=== PATIENT | female | born 1965 | race Caucasian/White ===

== ENCOUNTER 2017-03-26 05:46 | Day surgery (SDC) | payer OTHER ==
[2017-03-26] VITALS (13 sets, daily range): BP systolic 112–153; BP diastolic 49–82; PULSE 59–72; RESP 13–22; O2SAT 95–100
[~2017-03-26] VITALS: Ht 167.6 cm; Wt 69.7 kg
[~2017-03-26 05:46] MED LIST: ALPH50CA PO; ATOR20TA PO; FEXO180T85 PO; FLUT50DI IH; IMI100 PO; LEVO100T6 PO; LISI40TA PO; VALA500T38 PO
[2017-03-26] MEDS ORDERED: Propofol 10,000 mCg/mL 20 mL Inj ONE (05:47)
[2017-03-26] MEDS ORDERED: Ondansetron 2 mg/mL 2 mL Inj ONE (05:47)
[2017-03-26] MEDS ORDERED: fentaNYL-PF 50 mCg/mL 2 mL Inj ONE (05:47)
[2017-03-26] MEDS ORDERED: Phenylephrine/NS 100 mCg/mL 10 mL Syringe IVPUSH ONE (05:47)
[2017-03-26] MEDS ORDERED: MetoCLOpramide 5 mg/mL 2 mL Inj ONE (05:47)
[2017-03-26] MEDS ORDERED: Rocuronium 10 mg/mL 5 mL Inj ONE (05:47)
[2017-03-26] MEDS: Lactated Ringer's 1,000 ML IV SCH ×2 (05:52→08:00)
[2017-03-26] MEDS ORDERED: insulin pump SQ (06:05)
[2017-03-26] MEDS ORDERED: Bupivacaine-MPF 0.5% W/EPI 30 mL Inj INFILTRATE ONE (08:44)
[2017-03-26] MEDS ORDERED: Lactated Ringer's 500 ML IV PRN (08:44)
[2017-03-26] MEDS ORDERED: Lactated Ringer's 1,000 ML IV SCH (08:44)
--- NOTE | 2017-03-26 08:44 | PCM.HPANE ---
Patient Data Surgeon Admitting Provider: Attending Provider:Sean Shaw MD Primary Care Physician:Other,Physician Other Provider:Ashely Ravi Anesthesia Reason for Visit Left Thyroid Nodule Ht/WT & BMI Height (Feet): 5 Height (Inches): 6.00 Weight (Kilograms): 69.7 Body Mass Index 24.00 Allergies Coded Allergies: No Known Allergies (Unverified , 03/25/17) Past Anesthesia History Anesthesia History: Positive for:: Anesthesia Reactions (very nauseated post op ), Denies:: Abnormal Airway, Difficult Intubation, Fam Anesthesia Reaction ( believes mother has nausea post op), Fam Malignant Hypertherm, Malignant Hyperthermia Diabetes History Hx Diabetes?: Yes (insulin pump, bs at home at 04-168) Type of Diabetes: Type I Glycemic Control: Insulin Pump Current Bedside Blood Glucose: 164 MRSA MRSA: No Medications Hypertension Medication: No Home Meds Incl Beta Aubrey: No Reported Medications [insulin pump] No Conflict Check0.925 Units SQ cont 03/26/17 Valacyclovir 500 Mg [id number] Mg PO BID 03/25/17 Sumatriptan (Imitrex)100 Mg [id number] Mg PO PRN migraines 03/25/17 Lisinopril 40 Mg [id number] Mg PO DAILY 30 Days Ref 0 03/25/17 Levothyroxine 100 Mcg [id number] Mcg PO DAILY For Thyroid Replacement Ref 0 03/25/17 Fluticasone Propionate (Flovent Diskus)50 Mcg Disk.w.dev1 Puff IH BID #1 INHALER Ref 0 03/25/17 Atorvastatin (Lipitor)20 Mg Ksalvb39 Mg PO DAILY Ref 0 03/25/17 Alpha Lipoic Acid 50 Mg Szhhtyf73 Mg PO DAILY 03/25/17 Fexofenadine (Rosalind Allergy)180 Mg Zwhfhp201 Mg PO DAILY Ref 0 03/25/17 History History of ENT Problems?: No HEENT History: Denies:: Abnormal Airway Cataracts Difficult Intubation Dysphagia Glaucoma Hearing Problem Sinus Problem TMJ Denture Type: None Teeth Condition: Within Normal Limits Hx of Heart Problems?: No Cardiovascular History: Positive for:: Hypertension Denies:: AICD Abdominal Aortic Aneurism Atrial Fibrillation Cardiac Surgery Chest Pain Congestive Heart Failure Coronary Artery Disease Edema Heart Murmur Irregular Heartbeat Pacemaker Peripheral Vascular Rheumatic Fever Thrombophlebitis Valvular Heart Disease Hx of Respiratory Problem?: Yes Respiratory History: Positive for:: Asthma (exercise induced only) Use of Inhalers / NEBS Denies:: COPD Chest Surgery Cough Dyspnea Emphysema Hemoptysis Oxygen Administration Pneumonia Pulmonary Embolism Tuberculosis Use of C-PAP Machine Hx Neurologic Problems?: Yes Neurological History: Positive for:: Headaches (rare) Denies:: Alzheimer's Disease CVA Dementia Dizziness Multiple Sclerosis Parkinson's Disease Peripheral Neuropathy Seizures TIA Hx of GI Problems?: No Gastrointestinal History: Denies:: Cirrhosis Diverticulitis Gall Bladder Disease Gastroesphageal Reflux Gastrointestinal Bleeding Heartburn Hepatitis Hiatal Hernia Liver Disease Rectal Bleeding Hx of Problems?: No Genitourinary History: Denies:: HX of Hemodialysis Kidney Stones Urinary Tract Infection HX of Peritoneal Dialysis: No Female Hx: Denies:: Currently Endometriosis Pelvic Inflammatory Problems with Breasts? Skin History: Denies:: History Skin Disorders? Pressure Ulcers Hx Musculoskeletal Problems?: No Musculoskeletal History: Denies:: Back Injury Degenerative Joint Fibromyalgia Joint Replacement Musculoskeletal Trauma Myasthenia Gravis Osteoarthritis Rheumatoid Arthritis Systemic Lupus Hx of Psycho/Social Problems?: No Psycho Social History: Denies:: Anxiety Bipolar Disorder Hx Depression Suicide Attempt Hx Surgeries?: Yes (expl lap, knee scope) Hx Any Other Health Problems?: Yes Other History: Positive for:: Thyroid Disease (current admission problem) Denies:: Cancer History Blood Transfusions: Positive for:: Accept Blood Products? Denies:: Blood Transfusions Hx Diabetes: Yes (insulin pump, bs at home at 04-168)Bedside Blood Glucose: 164 Hx Alcohol Use: YesAlcoholic Drinks Per Day: 2 glasses weekHx Substance Use: NoHave You Smoked inLast 12 mo: No Stop/Bang P-Blood Pressure: treated: Yes B- Body Mass Index > 35 kg/m2: No A- Age over 50: Yes N- Neck Large Circumference: No G- Gender Male: No Risk Assessment Category Category 1A: Patient has history of documented sleep apnea, and HAS NOT received any narcotic, sedative or anesthesia administration during this stay. Category 1B: Patient has history of documented sleep apnea, and HAS received any narcotic , sedative or anesthesia administration during this stay Category 2: Patient has SUSPECTED Obstructive Sleep Apnea, and HAS received any narcotic , sedative or anesthesia administration during this stay. Category 3: Patient has SUSPECTED Obstructive Sleep Apnea and HAS NOT received narcotic, sedative or anesthesia administration during this stay. Category 4: Outpatient in Procedural Areas with known sleep apnea or who screen positive for High Risk via the STOP/BANG questionnaire. Exam Exam Vital Signs Vital Signs Date Time Temp Pulse Resp B/P Pulse Ox O2 Delivery O2 Flow Rate FiO2 03/26/17 06:37 36.5 60 18 153/82 100 Room Air General Appearance: Alert, Oriented X3, Cooperative, No Acute Distress HEENT/AIRWAY: MP 2, Neck Movement (FROM), Mouth Opening (3 FBMO) Lungs: Clear to Auscultation, Normal Air Movement Heart: Exam Unremarkable, Regular Rate/Rhythm, No Murmurs/Rubs/Gallops Meds/Labs/Diagnostics Admission Meds Current Medications Lactated Ringer's (Lr) 1,000 ml @ 120 mls/hr Q8H20M IV Last administered on t 05:52; Start 03/26/17 at 05:00; Stop 03/26/17 at 13:19 Bedside Blood Glucose: 164 Plan Impression Patient chart reviewed, patient interviewed and anesthestic plan with risks, benefits, and alternatives discussed, and informed consent obtained. NPO per Anesth. Guidelines: Yes ASA Physical Status: ASA3 Severe Disease (IDDM, with insulin pump) Anesthetic Plan: GA Bene/Risks/Altern/Consents: Yes HP Complete Prior to Induction: Yes Geovanny Snyder MD Mar 26, 2017 06:58
[2017-03-26] MEDS ORDERED: HYDROmorphone 1 mg/mL Inj IVPUSH PRN (08:45)
[2017-03-26] MEDS ORDERED: fentaNYL-PF 50 mCg/mL 2 mL Inj IVPUSH PRN (08:45)
[2017-03-26] MEDS ORDERED: EPHEDrine Sulfate 50 mg/mL Inj IVPUSH PRN (08:45)
[2017-03-26] MEDS ORDERED: Phenylephrine 10,000 mCg/mL Inj IVPUSH PRN (08:45)
[2017-03-26] MEDS ORDERED: Labetalol 5 mg/mL 4 mL Inj IV PRN (08:45)
[2017-03-26] MEDS ORDERED: Ondansetron 2 mg/mL 2 mL Inj IVPUSH PRN (08:45)
[2017-03-26] MEDS ORDERED: MetoCLOpramide 5 mg/mL 2 mL Inj IVPUSH PRN (08:45)
[2017-03-26] MEDS ORDERED: Atropine 0.4 mg/mL Inj IVPUSH PRN (08:45)
[2017-03-26] MEDS ORDERED: HYDROcodone-APAP 5-325 mg Tablet PO PRN (11:00)
--- NOTE | 2017-03-26 11:42 | OP ---
[address] [address] OPERATIVE REPORT PATIENT: CHARLES GAINES : 1965 MR#: [id number] ADMIT: 03/26/2017 JOB ID: [id number] DATE OF SURGERY: 03/26/2017 PREOPERATIVE DIAGNOSIS(ES): Left thyroid nodule. POSTOPERATIVE DIAGNOSIS(ES): Left thyroid node. PROCEDURE: Left thyroid lobectomy. SURGEON: Sean Shaw MD DAIRY LAB TECHNICIAN: MD Veto Corodn PA-C INDICATION: A 51-year-old female, who has a left thyroid nodule. 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 It is approaching 4 cm in size, and the entire lobe was 6 cm. She has a history of hypothyroidism and has been on chronic thyroid replacement. She also has insulin-dependent diabetes. On physical examination, she had a visible left thyroid nodule, and after discussing options with the patient, it was elected to proceed with a left thyroid lobectomy. FINDINGS: The left inferior pole nodule showed no evidence of invasion of adjacent strap muscles or other structures. The left inferior parathyroid was identified and preserved, and possibly the superior. The recurrent laryngeal nerve was identified and preserved. The nodule had a cystic component and when the inferior pole was being retracted, the cystic portion ruptured and some of the nodule came into the wound, but was removed and the wound was irrigated, and there was no residual nodular tissue in the wound at the end of the operation. DESCRIPTION OF PROCEDURE: At the beginning and end of the operation, the SCOAP checklist was completed. A general endotracheal anesthetic was induced. Her neck was extended, prepped with ChloraPrep and draped in the usual fashion. The collar incision was designed and infiltrated with 0.5% bupivacaine with epinephrine. After incising the skin, cautery was used to divide the platysma muscle and superior and inferior subplatysmal flaps were created. The strap muscles were identified and in the midline, and then the plane between the sternohyoid and sternal thyroid muscles on the left was . The sternal thyroid was then mobilized off the left lobe. The middle thyroid vein was identified and divided with double applications of the LigaSure. The superior pole vessels were taken and the superior pole was then freed. The inferior pole was inspected and I was able to identify the left inferior parathyroid gland just off of the thyroid lobe. It was preserved. The isthmus was divided with the energy device. Mobilization then of the lobe continued from both the superior pole towards the medial and the inferior pole towards medial. I was then able to mobilize the lobe medially, but in doing so, as stated above, the nodule which was partially cystic, ruptured. As the lobe was mobilized medially, the left recurrent laryngeal nerve was identified. There was almost a fibrotic appearance or texture to the gland near Wes's ligament, and this was, of course, taken very carefully and slowly using bipolar cautery, but frequently going back and identifying the location of the recurrent nerve. Ultimately, the lobe was completely removed. The wound was irrigated with saline. There was no active bleeding. The strap muscles were reapproximated in midline with 3-0 Vicryl. The platysma was closed with running 3-0 Vicryl. The skin with running subcuticular 4-0 Monocryl and then with Dermabond. The estimated blood loss was 30 cc. There were no apparent complications. The final sponge, needle, and instrument counts were announced as correct and the patient was returned to the recovery room in stable condition. Critical assistance was provided by Jordin Salas MD, and Jose G Lr PA-C. CC: Naima Rabago, [place]
--- NOTE | 2017-03-26 11:44 | PCM.ANEP1 ---
Post Anesthesia PACU Phase 1 Assessment Vital Signs Vital Signs Date Time Temp Pulse Resp B/P Pulse Ox O2 Delivery O2 Flow Rate FiO2 03/26/17 11:30 60 16 116/59 98 Nasal Cannula 2 03/26/17 11:26 36.9 62 22 122/59 97 Nasal Cannula 2 03/26/17 11:15 64 13 114/49 97 Room Air 03/26/17 11:10 64 20 113/56 95 Room Air 03/26/17 11:05 67 14 122/53 95 Room Air 03/26/17 11:00 69 15 119/60 95 Room Air 03/26/17 10:55 69 14 112/55 95 Room Air 03/26/17 10:50 70 17 119/52 97 Simple Mask 10 03/26/17 10:45 72 16 128/66 97 Simple Mask 10 03/26/17 10:40 69 16 123/72 97 Simple Mask 10 03/26/17 10:38 36.7 68 19 126/59 97 Simple Mask 10 03/26/17 06:37 36.5 60 18 153/82 100 Room Air Anesthetic Administered: GA Level of Alertness: Awake, talking MCKEON's with Equal Strength: Yes Pain: No Nausea or Vomiting: No CV Function & Hydration Stable: No Airway Device: Oxygen Delivery: Nasal Cannula Lungs: Clear to Auscultation, Normal Air Movement Dermatome Level: Full Sensation PACU Phase 2 Assessment Complications: No Follow up Care: N/A Patient Instructions Provided: N/A Geovanny Snyder MD Mar 26, 2017 11:44
--- NOTE | 2017-03-28 13:49 | PATH ---
SURGICAL PATHOLOGY Attending Physician:Sejal Crystal CASE STATUS: Signed Out PATIENT NAME: CHARLES GAINES PID: [id number] : 1965 DATE COLLECTED:03/26/2017 22:50 SPECIMEN: 1: Thyroid, Lobectomy 2: Thyroid, Lobectomy CLINICAL HISTORY: LEFT THYROID NODULE 1). PORTION OF THYROID NODULE 2). LEFT THYROID FINAL DIAGNOSIS: 1. 2.LEFT THYROID LOBE RESECTION SPECIMENS: DIFFUSE LYMPHOCYTIC CHRONIC THYROIDITIS. MULTIPLE FOLLICULAR HYPERPLASTIC NODULES. SINGLE PARATHYROID GLAND IDENTIFIED IN THE LOWER PORTION OF THE SPECIMEN (INTRATHYROID). Negative for significant atypia and malignancy. ICD10 E06.3 GROSS DESCRIPTION: The specimens are received in formalin, labeled with the patient's name, and sublabel has the following colon (one) portion of thyroid nodule; (2) left thyroid, short stitch: medial, long: superior pole. (1) The specimen consists of multiple unoriented pieces of islas rubbery glistening tissue (4.5 x 3.5 x 1.3 cm in aggregate, ranging 1.2 x 0.9 x 0.7 cm-3.0x1.5 x 1.5 cm). Section code: (1A, 1B) tissue, commercial pest control representative. (2) The specimen consists of a thyroid gland left lobe (26.4 g, 5.2 x 4.5 x 2.8 cm). The specimen is oriented with 2 black sutures (short-medial, long-superior pole). The capsule is menjivar-islas smooth and shiny. The parenchyma is red-brown with diffuse islas-white solid rubbery nodularity (0.1 cm-2.5 cm). The capsule covering the largest nodule is torn and a portion of the nodule is absent. Ink code: purple-anterior; yellow-posterior; green-medial. Section code: (2A) superior pole, perpendicularly sectioned, entirely submitted; (2B-2I) left lobe, serially sectioned and submitted SI, commercial pest control representative; (2J) inferior pole, perpendicularly sectioned, commercial pest control representative. 03/27/17 JM MICRO DESCRIPTION: See diagnosis. ICD-9 CODES: CPT CODES: 1: 68874 2: 23284 Electronically Signed Out Efra Denton MD [facility], [place] [address] Technical component performed at [facility], [address], [address]
== END 2017-03-26 23:59 | disposition home or self-care (01) ==
LOC: SAS 05:46
PROVIDERS: ATTEND Surgery
DX: E04.1 Nontoxic single thyroid nodule (principal); I10 Essential (primary) hypertension; E03.9 Hypothyroidism, unspecified; E10.29 Type 1 diabetes mellitus with other diabetic kidney complication; M17.10 Unilateral primary osteoarthritis, unspecified knee; J45.909 Unspecified asthma, uncomplicated; Z96.41 Presence of insulin pump (external) (internal)
CPT/HCPCS: 60210; J2405; J3010; J7120